=== PATIENT | male | born 1985 | race Caucasian/White ===

== ENCOUNTER 2020-07-22 15:27 | Inpatient (IN) | payer OTHER ==
[~2020-07-22] VITALS: Ht 170.2 cm; Wt 64.6 kg
[2020-07-22] MEDS ORDERED: LIAL1.2T PO ×2 (15:45→21:21)
[2020-07-22] MEDS ORDERED: NS 1,000 ML IV SCH (16:17)
[2020-07-22 17:23] LABS: BASO # 0.1 10^3/uL (0.0-0.2); BASO % 0.3 % (0.0-1.0); EOS # 0.4 10^3/uL (0.0-0.5); EOS % 2.5 % (0.0-3.0); HEMATOCRIT 33.8 % (42.0-52.0); HEMOGLOBIN 10.7 g/dl (13.5-17.5); LYMPH # 1.6 10^3/uL (1.5-5.0); LYMPH % 9.6 % (24.0-44.0); MEAN CORPUSCULAR HEMOGLOBIN 26.8 pg (27.0-33.0); MEAN CORPUSCULAR HGB CONC 31.7 g/dl (32.0-36.5); MEAN CORPUSCULAR VOLUME 84.5 fl (80.0-96.0); MONO # 1.1 10^3/uL (0.0-0.8); MONO % 6.5 % (0.0-5.0); NEUTROPHILS # 13.7 10^3/uL (1.5-8.5); NEUTROPHILS % 80.5 % (36.0-66.0); PLATELET COUNT, AUTOMATED 501 10^3/uL (150-450)
[2020-07-22 17:31] LABS: INR 1.11; PROTHROMBIN TIME 14.5 SECONDS (12.5-14.3)
[2020-07-22 17:40] LABS: ALBUMIN 2.3 GM/DL (3.2-5.2); BILIRUBIN,DIRECT 0.1 MG/DL (0.0-0.2); BILIRUBIN,TOTAL 0.2 MG/DL (0.2-1.0); TOTAL PROTEIN 7.3 GM/DL (6.4-8.2)
[2020-07-22] MEDS: GASTROGRAFIN SOLUTION 30ML PO SCH ×2 (17:51→18:41)
[2020-07-22] MEDS ORDERED: ISOVUE-370 76% 100ML VIAL As Ordered ONE (19:00)
--- NOTE | 2020-07-22 19:58 | REPVR ---
PROCEDURE INFORMATION: Exam: CT Abdomen And Pelvis With Contrast Exam date and time: 07/22/2020 7:18 PM Age: 35 years old Clinical indication: Abdominal pain; Generalized; Additional info: Ulcerative colitis TECHNIQUE: Imaging protocol: Computed tomography of the abdomen and pelvis with intravenous contrast. Radiation optimization: All CT scans at this facility use at least one of these dose optimization techniques: automated exposure control; mA and/or kV adjustment per patient size (includes targeted exams where dose is matched to clinical indication); or iterative reconstruction. Contrast material: ISOVUE 370; Contrast volume: 100 ml; Contrast route: INTRAVENOUS (IV); COMPARISON: No relevant prior studies available. FINDINGS: Liver: Too small to accurately characterize low-density lesion within the posterior segment of the right hepatic lobe (image 33 of series 201), likely cyst. The liver is otherwise unremarkable. Gallbladder and bile ducts: Unremarkable. No calcified stones. No ductal dilation. Pancreas: Unremarkable. No ductal dilation. Spleen: Unremarkable. No splenomegaly. Adrenal glands: Normal. No mass. Kidneys and ureters: Too small to accurately characterize low-density lesion within the right kidney upper pole (axial image numeral 39 of series 201) likely cyst. Normal left kidney. No renal stone or hydronephrosis. Stomach and bowel: Mild circumferential wall thickening throughout the distal transverse colon, splenic flexure, descending colon and sigmoid colon with mild increased density in the pericolonic fat consistent with colitis. The ascending and proximal portion of the transverse colon are unremarkable. The stomach and small bowel are unremarkable. Appendix: No evidence of appendicitis. Intraperitoneal space: Unremarkable. No free air. No significant fluid collection. Vasculature: The main portal vein is dilated measuring up to 18 mm in diameter and the splenic vein is borderline dilated at 11 mm which may be seen with portal venous hypertension. Lymph nodes: Unremarkable. No enlarged lymph nodes. Urinary bladder: Unremarkable as visualized. Reproductive: Unremarkable as visualized. Bones/joints: No acute fracture. Soft tissues: Unremarkable. IMPRESSION: 1. Mild colitis involving the left colon. 2. Possible portal venous hypertension. Electronically signed by: Nader Jordan On 07/22/2020 19:58:24 PM
[2020-07-22] MEDS ORDERED: MAALOX 30 ML SUSP *UDC PO PRN (22:15)
[2020-07-22] MEDS ORDERED: MOM 30ML SUSPENSION UDC PO PRN (22:15)
--- NOTE | 2020-07-22 22:17 | IPNPDOC ---
Text Note Date of Service The patient was seen on 07/22/20. NOTE TIME OF SERVICE 955PM is a 35 yr old w a hx of UC who presented w c/o bloody diarrhea & mid lower abdominal pain and 17 lbs weight loss; he is no longer vomiting. His physical exam is remarkable for generalized palor and occasional grimacing. 1.Diarrhea possibly due to acute UC but need to r/o infection Plan: admit to PCU / IVF / metronidazole / pending GI panel and C.diff will start steroids /no GI auto inspection specialist tonight, will ask the day time team to call GI to discuss switching from Mesalamine to newer Immunologic 2. Abdominal pain Likley 2/2 UC / can't r/o co-existing pancreatitis (Mesalamine like other ASA products can cause pancreatitis) Plan: NPO/ IVF / morphine for pain 3. SIRS reactive vs 2/2 infection Plan: f/u blood cx and GI panel 4. Microcytic anemia w reactive thrombocytosis Likely 2/2 OZ Plan: f/u Iron panel rest per 's H&P VS,Desmondbone, I+O VS, Desmondbone, I+O Laboratory Tests 07/22/20 16:32 Vital Signs Date Time Temp Pulse Resp B/P (MAP) Pulse Ox O2 Delivery O2 Flow Rate FiO2 07/22/20 22:00 107 14 176/90 (118) 100 Room Air 07/22/20 15:28 100.3 EN WILSON MD Jul 22, 2020 22:17
[2020-07-22] MEDS: NS 1,000 ML IV SCH (22:33)
[2020-07-22] MEDS: ACETAMINOPHEN TAB 650MG DOSE (2X325MG) PO PRN (22:49)
[2020-07-22] MEDS: MORPHINE 2 MG/ML 1ML VIAL (J2270) IV PRN (22:49)
--- NOTE | 2020-07-22 23:03 | HPEPDOC ---
[facility] Medical History & Physical Date of Admission Jul 22, 2020 Date of Service: Jul 22, 2020 Attending Physician: EN WILSON MD History and Physical CHIEF COMPLAINT: Abdominal pain, bloody diarrhea HISTORY OF PRESENT ILLNESS: Patient is a 35 year old male who presented to the [facility] ER with complaint of worsening abdominal pain and bloody diarrhea for the past three weeks. Patient states that in January/February of last year he was diagnosed with Ulcerative Colitis. He had been treated with mesalamine and steriod at the time and was continued on Mesalamine for maintenance. He states that three weeks ago he had noticed some increasing abdominal pain and bloody diarrhea. He had steroid left over that his GI doctor in [place] had instructed him to take if he developed a flare. The patient stated that the pain got a little better. He then presented to [facility] where he was told to stop taking the steroid. He was referred to GI with an appointment on August 02. His pain continued to persist and worsened. He stated that he did get a fever and continued to have diarrhea. He noted a 17 pound weight loss over the past week or two. When he returned to his PCP, he was instructed to go to the ER In the ER the patient was vitally stable. He was febrile on presentation, with a leukocytosis and tachycardia. Serum chemistries demonstrated a mild elevation in transaminases and an elevation in serum lipase. CT imaging obtained demonstrated a mild colitis involving the left colon and possible portal venous hypertension. The patient continued to have persistent abdominal pain. Hospitalist service was consulted and the patient was admitted for further evaluation and management PAST MEDICAL HISTORY: 1. Ulcerative Colitis PAST SURGICAL HISTORY: 1. Lasik eye surgery SOCIAL HISTORY: Patient is active . He is a nonsmoker. Denies any IV or illicit drug use. He drinks alcohol on occasion. Maybe 2 glasses of wine per week. FAMILY HISTORY: Patients brother has Ulcerative Colitis. He denies any other family history of autoimmune disorders ALLERGIES: Please see below. REVIEW OF SYSTEMS: CONSTITUTIONAL: Admits to fevers and chills. Denies nightsweats. Admits to weightloss HEENT: Denies difficulty swallowing or pain on swallowing CARDIOVASCULAR: Denies chest pain, palpitations or feelings of the heart racing RESPIRATORY: Denies shortness of breath. Denies cough. Denies wheezing GASTROINTESTINAL: Admits to abdominal pain. Admits to diarrhea. Admits to bloody stool. Admits to nausea. Denies vomiting GENITOURINARY: Denies dysuria. Denies increased frequency or urgency SKIN: Denies rashes or lesions MUSCULOSKELETAL: Denies muscle weakness. Admits to right knee pain that started the other day NEUROLOGICAL: Denies changes in speech. Denies changes in gait PSYCHIATRIC: Denies depression or anxiety ENDOCRINE: Denies heat intolerance or cold intolerance HEMATOLOGIC/LYMPHATIC: Denies easy bruising or bleeding. Denies history of DVT or PE HOME MEDICATIONS: Please see below. PHYSICAL EXAMINATION: VITAL SIGNS: Temperature 100.3, pulse 97, respiratory rate 18, blood pressure 129/76, pulse oximetry 100% on room air. GENERAL APPEARANCE: Patient is awake, alert, and oriented. He does not appear in acute distress. He appears uncomfortable and in pain HEENT: Atraumatic, normocephalic. Eyes are nonicteric. Trachea is midline. Mucous membranes are pink and moist CARDIOVASCULAR: Normal S1, S2. Regular rate and rhythm. No clicks rubs or murmurs LUNGS: Clear vesicular breath sounds bilaterally. No wheezes, rhonchi or rales ABDOMEN: Soft, nondistended. Hyperactive bowel sounds. Nontender. No rebound tenderness or guarding EXTREMITIES: No edema. Full and equal pulses bilaterally. Point tenderness at the lateral knee. NEUROLOGICAL: No focal neurological deficits PSYCHIATRIC: Mood and affect appear appropriate LABORATORY DATA: See below. IMAGING: PROCEDURE INFORMATION: Exam: CT Abdomen And Pelvis With Contrast Exam date and time: 07/22/2020 7:18 PM Age: 35 years old Clinical indication: Abdominal pain; Generalized; Additional info: Ulcerative colitis TECHNIQUE: Imaging protocol: Computed tomography of the abdomen and pelvis with intravenous contrast. Radiation optimization: All CT scans at this facility use at least one of these dose optimization techniques: automated exposure control; mA and/or kV adjustment per patient size (includes targeted exams where dose is matched to clinical indication); or iterative reconstruction. Contrast material: ISOVUE 370; Contrast volume: 100 ml; Contrast route: INTRAVENOUS (IV); COMPARISON: No relevant prior studies available. FINDINGS: Liver: Too small to accurately characterize low-density lesion within the posterior segment of the right hepatic lobe (image 33 of series 201), likely cyst. The liver is otherwise unremarkable. Gallbladder and bile ducts: Unremarkable. No calcified stones. No ductal dilation. Pancreas: Unremarkable. No ductal dilation. Spleen: Unremarkable. No splenomegaly. Adrenal glands: Normal. No mass. Kidneys and ureters: Too small to accurately characterize low-density lesion within the right kidney upper pole (axial image numeral 39 of series 201) likely cyst. Normal left kidney. No renal stone or hydronephrosis. Stomach and bowel: Mild circumferential wall thickening throughout the distal transverse colon, splenic flexure, descending colon and sigmoid colon with mild increased density in the pericolonic fat consistent with colitis. The ascending and proximal portion of the transverse colon are unremarkable. The stomach and small bowel are unremarkable. Appendix: No evidence of appendicitis. Intraperitoneal space: Unremarkable. No free air. No significant fluid collection. Vasculature: The main portal vein is dilated measuring up to 18 mm in diameter and the splenic vein is borderline dilated at 11 mm which may be seen with portal venous hypertension. Lymph nodes: Unremarkable. No enlarged lymph nodes. Urinary bladder: Unremarkable as visualized. Reproductive: Unremarkable as visualized. Bones/joints: No acute fracture. Soft tissues: Unremarkable. IMPRESSION: 1. Mild colitis involving the left colon. 2. Possible portal venous hypertension. Electronically signed by: Nader Jordan On 07/22/2020 19:58:24 PM MICROBIOLOGY: Please see below. ASSESSMENT: Patient is a 35 year old male with as past medical history significant for ulcerative colitis who presented to the [facility] ER with complaint of worsening abdominal pain and bloody diarrhea for the past three weeks . PLAN: 1. SIRS/Sepsis -Patient presenting with fever, tachycardia, and elevated WBC. Imaging demonstrating colitis. His colitis is likely 2/2 ulcerative colitis flare. Will obtain GI panel to rule out infectious etiology -Blood cultures pending 2. Abdominal pain w/ bloody diarrhea likely 2/2 UC -Patient presenting with persistent abdominal pain, bloody diarrhea, and weight loss over the past three weeks. Likely 2/2 ulcerative colitis flare. He has been taking mesalamine outpatient. He has elevation in lipase although his symptomatology and imaging do not suggest pancreatitis. Imaging demonstrating a left sided colitis -Hold -Start Budesonide 9mg daily once GI panel negative -NPO except meds -Continue IVF -Morphine IV for pain relief -Will obtain GI panel to r/o infectious etiology -Flagyl empiric -ESR pending 3. Transaminitis -Patient presenting with transaminitis. Likely secondary to history of UC. Alk phosphatase and bilirubin are not elevated making primary biliary cirrhosis unlikely -Possibly secondary to fatty liver disease -Will trend transaminases 4. Elevated Lipase -As stated previously. Lipase elevated greater then 3x the upper limits. However the patients pain is not consistent with pancreatitis. Imaging does not suggest pancreatitis. -Will continue to monitor -Patient currently NPO, IVF and Morphine for pain 5. Anemia and thrombocytosis -Patient likely has anemia of chronic disease. Thrombocytosis is likely inflammatory -Will obtain iron studies. Currently hgb is stable. Will continue to trend 6. DVT Prophylaxis -Lovenox SQ Vital Signs Vital Signs Date Time Temp Pulse Resp B/P (MAP) Pulse Ox O2 Delivery O2 Flow Rate FiO2 07/22/20 22:00 107 14 176/90 (118) 100 Room Air 07/22/20 15:28 100.3 Laboratory Data Labs 24H Laboratory Tests 2 07/22/20 16:32: Immature Granulocyte % (Auto) 0.6, Neutrophils (%) (Auto) 80.5H, Lymphocytes (%) (Auto) 9.6L, Monocytes (%) (Auto) 6.5H, Eosinophils (%) (Auto) 2.5, Basophils (%) (Auto) 0.3, Neutrophils # (Auto) 13.7H, Lymphocytes # (Auto) 1.6, Monocytes # (Auto) 1.1H, Eosinophils # (Auto) 0.4, Basophils # (Auto) 0.1, Nucleated Red Blood Cells % (auto) 0.0, Prothrombin Time 14.5H, Prothromb Time International Ratio 1.11, Lactic Acid Level 0.9, Total Bilirubin 0.2, Direct Bilirubin 0.1, Aspartate Amino Transf (AST/SGOT) 54H, Alanine Aminotransferase (ALT/SGPT) 99H, Alkaline Phosphatase 87, Total Protein 7.3, Albumin 2.3L, Albumin/Globulin Ratio 0.5, Lipase 2493H 07/22/20 16:55: POC Glucose (Misc Panel) 96, POC Sodium (Misc Panel) 135L, POC Potassium (Misc Panel) 3.7, POC Chloride (Misc Panel) 94L, POC Total CO2 (Misc Panel) 26.0, POC Blood Urea Nitrogen (Misc Panel 7L, POC Ionized Calcium (Misc Panel) 4.6, POC Creatinine (Misc Panel) 1.0, POC Hematocrit (Misc Panel) 33.0L CBC/BMP Laboratory Tests 07/22/20 16:32 Microbiology Microbiology 07/22/20 Blood Culture, Received Pending 07/22/20 Blood Culture, Received Pending Home Medications Scheduled Mesalamine (Lialda) 1.2 Gm Tablet., 3.6 GM PO DAILY Allergies Coded Allergies: No Known Allergies (Unverified , 07/22/20) A-FIB/CHADSVASC A-FIB History Current/History of A-Fib/PAF?: No GME ATTESTATION GME ATTESTATION My faculty preceptor for this patient encounter was physically present during the encounter and was fully available. All aspects of the patient interview, examination, medical decision making process, and medical care plan development were reviewed and approved by the faculty preceptor. The faculty preceptor is aware and concurs with the plan as stated in the body of this note and will attest to such by his/her cosignature. ATTENDING NOTE Pls see my addendum from 07/22/20 reviewed the H&P and agree with the findings as documented except 1.Diarrhea possibly due to acute UC but need to r/o infection will not start steroids until GI panel is back bc if the patient has an infection/sepsis they will further suppress his immune system 2. Abdominal pain Likely 2/2 UC / can't r/o co-existing pancreatitis (Mesalamine like other ASA products can cause pancreatitis and he has 2/3 criteria which is adequate to confirm a diagnosis of pancreatitis) Plan: NPO/ IVF / morphine for pain 3. Reactive SIRS vs Sepsis 2/2 GI infection Plan: f/u blood cx and GI panel / metronidazole RAH MONSON DO Jul 22, 2020 23:03 EN WILSON MD Jul 23, 2020 01:47
[2020-07-22 23:05] LABS: ERYTHROCYTE SEDIMENTATION RATE 116 mm/hr (0-15)
[2020-07-22 23:24] LABS: CHOLESTEROL RISK RATIO 3.333 (<5); PERCENT SATURATION 4.7 % (19.7-50.0)
[2020-07-22 23:33] LABS: FOLATE 7.9 NG/ML
[2020-07-22 23:54] VITALS: BP 117/74
[2020-07-23] MEDS ORDERED: metroNIDAZOLE 500 MG in IV 1 EA IV SCH ×2
[2020-07-23] MEDS: NS 1,000 ML IV SCH ×5 (02:49→18:23)
[2020-07-23] MEDS: MORPHINE 2 MG/ML 1ML VIAL (J2270) IV PRN ×6 (03:53→22:31)
[2020-07-23 05:43] LABS: BASO % 0.2 % (0.0-1.0); EOS # 0.6 10^3/uL (0.0-0.5); EOS % 3.7 % (0.0-3.0); HEMATOCRIT 28.1 % (42.0-52.0); HEMOGLOBIN 8.8 g/dl (13.5-17.5); LYMPH # 1.7 10^3/uL (1.5-5.0); LYMPH % 10.6 % (24.0-44.0); MEAN CORPUSCULAR HEMOGLOBIN 26.6 pg (27.0-33.0); MEAN CORPUSCULAR HGB CONC 31.3 g/dl (32.0-36.5); MEAN CORPUSCULAR VOLUME 84.9 fl (80.0-96.0); MONO # 1.2 10^3/uL (0.0-0.8); MONO % 7.3 % (0.0-5.0); NEUTROPHILS # 12.7 10^3/uL (1.5-8.5); NEUTROPHILS % 77.7 % (36.0-66.0); PLATELET COUNT, AUTOMATED 408 10^3/uL (150-450); RED BLOOD COUNT 3.31 10^6/uL (4.30-6.10); WHITE BLOOD COUNT 16.4 10^3/uL (4.0-10.0)
[2020-07-23 06:00] VITALS: BP 126/70
[2020-07-23 06:03] LABS: ALBUMIN 1.7 GM/DL (3.2-5.2); ALT/SGPT 67 U/L (12-78); BILIRUBIN,TOTAL 0.4 MG/DL (0.2-1.0); BLOOD UREA NITROGEN 6 MG/DL (7-18); CALCIUM LEVEL 7.9 MG/DL (8.5-10.1); CARBON DIOXIDE LEVEL 27 MEQ/L (21-32); CHLORIDE LEVEL 107 MEQ/L (98-107); CREATININE FOR GFR 0.96 MG/DL (0.70-1.30); GLOMERULAR FILTRATION RATE > 60.0 (>60); GLUCOSE, FASTING 93 MG/DL (70-100); POTASSIUM SERUM 3.9 MEQ/L (3.5-5.1); SODIUM LEVEL 140 MEQ/L (136-145)
[2020-07-23] MEDS ORDERED: BUDESONIDE EC 3 MG CAP (ENTOCORT EC) PO SCH (09:00)
[2020-07-23] MEDS: ENOXAPARIN 40MG/0.4ML SYRINGE (J1650 PER 10MG) SC SCH (09:00)
[2020-07-23] MEDS ORDERED: MESALAMINE 250 MG CR CAP PO SCH (09:00)
[2020-07-23] MEDS: methylPREDNISolone 125MG 2ML VIAL IV SCH (09:01)
--- NOTE | 2020-07-23 09:22 | IPNPDOC ---
Text Note Date of Service The patient was seen on 07/23/20. NOTE Subjective: Patient continues to have diffuse abdominal pain 5 out of 10, ov ernight he had 4 bowel movements, stool covered with blood Objective: GENERAL APPEARANCE: NAD HEENT: no scleral icterus, no JVD, EOMI CARDIOVASCULAR: S1S2 LUNGS: CTA ABDOMEN: Moderate tenderness over left lower quadrant, no rebound, bowel sounds present MUSCULOSKELETAL: no cyanosis, no swelling INTEGUMENT: no generalized palor NEUROLOGICAL: cranial nerve function from 2-12 intact intact, follows commands, speech not dysarthric Assessment and plan Patient is a 35 year old male with as past medical history significant for ulcerative colitis who presented to the [facility] ER with ulcerative colitis flare SIRS Most likely secondary to ulcerative colitis exacerbation Patient continues to have tachycardia and leukocytosis. Afebrile in the morning Abdominal pain with bloody diarrhea Most likely secondary to ulcerative colitis exacerbation Solu-Medrol 60 mg IV daily Clear liquid diet for now Pain management Transaminitis Resolved Ulcerative colitis Patient received by mouth prednisone, however prednisone was recently stopped by PCP Patient will have appointment with GI team on August 02 No GI coverage this week Solu-Medrol IV Elevated lipase Most likely secondary to mesalamine therapy Patient denied any epigastric pain or left upper quadrant pain CT scan did not show pancreatic inflammation Continue IV fluid, continue to monitor Anemia Most likely combined anemia of chronic inflammation and iron deficient anemia secondary to blood loss Iron supplementation H&H every 6 hours VS,Fishbone, I+O VS, Fishbone, I+O Laboratory Tests 07/22/20 16:32 07/23/20 05:20 Vital Signs Date Time Temp Pulse Resp B/P (MAP) Pulse Ox O2 Delivery O2 Flow Rate FiO2 07/23/20 06:00 99.6 88 18 126/70 (88) 96 Room Air I&O- Last 24 Hours up to 6 AM 07/23/20 06:00 Intake Total 2925 ml Output Total 0 ml Balance 2925 ml RONALDO SOARES DO Jul 23, 2020 09:22
[2020-07-23 09:55] VITALS: BP 142/73
[2020-07-23] MEDS: IRON POLYSAC (NIFEREX) 150 MG CAP PO SCH ×2 (10:42→20:18)
[2020-07-23 13:33] VITALS: BP 140/79
[2020-07-23 14:15] LABS: HEMATOCRIT 28.3 % (42.0-52.0); HEMOGLOBIN 8.8 g/dl (13.5-17.5)
[2020-07-23 14:38] LABS: ALBUMIN 1.9 GM/DL (3.2-5.2); ALT/SGPT 65 U/L (12-78); BILIRUBIN,TOTAL 0.2 MG/DL (0.2-1.0); BLOOD UREA NITROGEN 6 MG/DL (7-18); CALCIUM LEVEL 7.7 MG/DL (8.5-10.1); CARBON DIOXIDE LEVEL 26 MEQ/L (21-32); CHLORIDE LEVEL 106 MEQ/L (98-107); GLOMERULAR FILTRATION RATE > 60.0 (>60); GLUCOSE, FASTING 121 MG/DL (70-100); POTASSIUM SERUM 4.2 MEQ/L (3.5-5.1); SODIUM LEVEL 138 MEQ/L (136-145); TOTAL PROTEIN 5.8 GM/DL (6.4-8.2)
[2020-07-23 17:47] VITALS: BP 135/75
[2020-07-23 20:00] VITALS: BP 115/63
[2020-07-23 20:20] LABS: HEMATOCRIT 26.8 % (42.0-52.0); HEMOGLOBIN 8.3 g/dl (13.5-17.5)
[2020-07-23] MEDS: ACETAMINOPHEN TAB 650MG DOSE (2X325MG) PO PRN (21:43)
[2020-07-24 02:00] VITALS: BP 105/72
[2020-07-24 02:05] LABS: HEMATOCRIT 25.4 % (42.0-52.0)
[2020-07-24 02:19] LABS: BASO % 0.2 % (0.0-1.0); EOS % 0.1 % (0.0-3.0); HEMATOCRIT 25.3 % (42.0-52.0); LYMPH # 1.2 10^3/uL (1.5-5.0); LYMPH % 6.7 % (24.0-44.0); MEAN CORPUSCULAR HEMOGLOBIN 26.4 pg (27.0-33.0); MEAN CORPUSCULAR HGB CONC 31.6 g/dl (32.0-36.5); MEAN CORPUSCULAR VOLUME 83.5 fl (80.0-96.0); MONO # 1.2 10^3/uL (0.0-0.8); MONO % 6.4 % (0.0-5.0); NEUTROPHILS # 15.7 10^3/uL (1.5-8.5); PLATELET COUNT, AUTOMATED 396 10^3/uL (150-450); RED BLOOD COUNT 3.03 10^6/uL (4.30-6.10); WHITE BLOOD COUNT 18.2 10^3/uL (4.0-10.0)
[2020-07-24 02:39] LABS: ALBUMIN 1.8 GM/DL (3.2-5.2); ALT/SGPT 55 U/L (12-78); BILIRUBIN,TOTAL 0.2 MG/DL (0.2-1.0); BLOOD UREA NITROGEN 6 MG/DL (7-18); CARBON DIOXIDE LEVEL 26 MEQ/L (21-32); CHLORIDE LEVEL 108 MEQ/L (98-107); CREATININE FOR GFR 0.81 MG/DL (0.70-1.30); GLOMERULAR FILTRATION RATE > 60.0 (>60); GLUCOSE, FASTING 102 MG/DL (70-100); MAGNESIUM LEVEL 1.9 MG/DL (1.8-2.4); POTASSIUM SERUM 4.2 MEQ/L (3.5-5.1); SODIUM LEVEL 140 MEQ/L (136-145); TOTAL PROTEIN 5.5 GM/DL (6.4-8.2)
[2020-07-24] MEDS: ACETAMINOPHEN TAB 650MG DOSE (2X325MG) PO PRN ×3 (04:27→18:51)
[2020-07-24] MEDS: NS 1,000 ML IV SCH ×3 (04:28→20:46)
[2020-07-24] MEDS: MORPHINE 2 MG/ML 1ML VIAL (J2270) IV PRN ×4 (04:28→18:52)
[2020-07-24 06:00] VITALS: BP 117/69
[2020-07-24] MEDS: IRON POLYSAC (NIFEREX) 150 MG CAP PO SCH ×2 (08:12→20:45)
[2020-07-24] MEDS: ENOXAPARIN 40MG/0.4ML SYRINGE (J1650 PER 10MG) SC SCH ×2 (08:12→08:14)
[2020-07-24] MEDS: methylPREDNISolone 125MG 2ML VIAL IV SCH (08:13)
[2020-07-24 08:37] LABS: HEMATOCRIT 26.3 % (42.0-52.0)
[2020-07-24 10:00] VITALS: BP 129/78
--- NOTE | 2020-07-24 10:58 | IPNPDOC ---
Text Note Date of Service The patient was seen on 07/24/20. NOTE Subjective: Patient stated that he feels better, he had 2 bowel movements ov ernight without blood Objective: GENERAL APPEARANCE: NAD HEENT: no scleral icterus, no JVD, EOMI CARDIOVASCULAR: S1S2 LUNGS: CTA ABDOMEN: Mild tenderness over left lower quadrant, no rebound, bowel sounds present MUSCULOSKELETAL: no cyanosis, no swelling INTEGUMENT: no generalized palor NEUROLOGICAL: cranial nerve function from 2-12 intact intact, follows commands, speech not dysarthric Assessment and plan Patient is a 35 year old male with as past medical history significant for ul cerative colitis who presented to the [facility] ER with ulcerative colitis flare SIRS Most likely secondary to ulcerative colitis exacerbation Patient continues to have tachycardia and leukocytosis. Afebrile in the morning Abdominal pain with bloody diarrhea Most likely secondary to ulcerative colitis exacerbation Solu-Medrol 60 mg IV daily Full liquid diet Pain management Transaminitis Resolved Ulcerative colitis Patient received by mouth prednisone, however prednisone was recently stopped by PCP Patient will have appointment with GI team on August 02 No GI coverage this week Solu-Medrol IV Elevated lipase Most likely secondary to mesalamine therapy Patient denied any epigastric pain or left upper quadrant pain CT scan did not show pancreatic inflammation Continue IV fluid, continue to monitor Anemia Most likely combined anemia of chronic inflammation and iron deficient anemia secondary to blood loss Iron supplementation H&H every 6 hours VS,Fishbone, I+O VS, Fishbone, I+O Laboratory Tests 07/23/20 13:56 07/23/20 20:10 07/24/20 01:59 07/24/20 08:25 Vital Signs Date Time Temp Pulse Resp B/P (MAP) Pulse Ox O2 Delivery O2 Flow Rate FiO2 07/24/20 08:00 16 07/24/20 06:00 98.8 66 117/69 (85) 96 Room Air I&O- Last 24 Hours up to 6 AM 07/24/20 06:00 Intake Total 5240 ml Output Total 0 ml Balance 5240 ml RONALDO SOARES DO Jul 24, 2020 10:58
[2020-07-24 14:00] VITALS: BP 121/70
[2020-07-24 14:05] LABS: HEMATOCRIT 28.3 % (42.0-52.0); HEMOGLOBIN 8.6 g/dl (13.5-17.5)
[2020-07-24 20:00] VITALS: BP 108/63
[2020-07-24 20:18] LABS: HEMATOCRIT 27.4 % (42.0-52.0); HEMOGLOBIN 8.4 g/dl (13.5-17.5)
[2020-07-25] MEDS: ACETAMINOPHEN TAB 650MG DOSE (2X325MG) PO PRN ×3 (00:41→20:01)
[2020-07-25] MEDS: MORPHINE 2 MG/ML 1ML VIAL (J2270) IV PRN ×5 (00:41→23:53)
[2020-07-25 01:01] LABS: BASO % 0.1 % (0.0-1.0); EOS % 0.2 % (0.0-3.0); HEMOGLOBIN 7.4 g/dl (13.5-17.5); LYMPH # 1.8 10^3/uL (1.5-5.0); LYMPH % 14.4 % (24.0-44.0); MEAN CORPUSCULAR HGB CONC 30.8 g/dl (32.0-36.5); MEAN CORPUSCULAR VOLUME 84.2 fl (80.0-96.0); MONO % 7.7 % (0.0-5.0); NEUTROPHILS # 9.7 10^3/uL (1.5-8.5); NEUTROPHILS % 77.2 % (36.0-66.0); PLATELET COUNT, AUTOMATED 396 10^3/uL (150-450); RED BLOOD COUNT 2.85 10^6/uL (4.30-6.10); WHITE BLOOD COUNT 12.6 10^3/uL (4.0-10.0)
[2020-07-25 01:30] LABS: ALBUMIN 1.6 GM/DL (3.2-5.2); ALT/SGPT 44 U/L (12-78); BILIRUBIN,TOTAL 0.1 MG/DL (0.2-1.0); BLOOD UREA NITROGEN 7 MG/DL (7-18); CALCIUM LEVEL 7.9 MG/DL (8.5-10.1); CARBON DIOXIDE LEVEL 28 MEQ/L (21-32); CHLORIDE LEVEL 108 MEQ/L (98-107); CREATININE FOR GFR 0.73 MG/DL (0.70-1.30); GLOMERULAR FILTRATION RATE > 60.0 (>60); GLUCOSE, FASTING 99 MG/DL (70-100); MAGNESIUM LEVEL 1.9 MG/DL (1.8-2.4); POTASSIUM SERUM 4.1 MEQ/L (3.5-5.1); SODIUM LEVEL 141 MEQ/L (136-145); TOTAL PROTEIN 5.1 GM/DL (6.4-8.2)
[2020-07-25 02:00] VITALS: BP 114/54
[2020-07-25] MEDS: NS 1,000 ML IV SCH ×3 (04:29→20:58)
[2020-07-25 06:00] VITALS: BP 111/66
[2020-07-25 08:13] LABS: HEMATOCRIT 27.1 % (42.0-52.0); HEMOGLOBIN 8.2 g/dl (13.5-17.5)
[2020-07-25] MEDS: methylPREDNISolone 125MG 2ML VIAL IV SCH (08:33)
[2020-07-25] MEDS: IRON POLYSAC (NIFEREX) 150 MG CAP PO SCH ×2 (08:33→20:00)
[2020-07-25] MEDS: ENOXAPARIN 40MG/0.4ML SYRINGE (J1650 PER 10MG) SC SCH (08:34)
[2020-07-25 10:00] VITALS: BP 135/71
--- NOTE | 2020-07-25 10:29 | IPNPDOC ---
Text Note Date of Service The patient was seen on 07/25/20. NOTE Subjective: Patient had 2 bowel movements overnight with stool with blood str eaks Objective: GENERAL APPEARANCE: NAD HEENT: no scleral icterus, no JVD, EOMI CARDIOVASCULAR: S1S2 LUNGS: CTA ABDOMEN: Mild tenderness over left lower quadrant, no rebound, bowel sounds present MUSCULOSKELETAL: no cyanosis, no swelling INTEGUMENT: no generalized palor NEUROLOGICAL: cranial nerve function from 2-12 intact intact, follows commands, speech not dysarthric Assessment and plan Patient is a 35 year old male with as past medical history significant for ulcerative colitis who presented to the [facility] ER with ulcerative colitis flare SIRS Most likely secondary to ulcerative colitis exacerbation Patient continues to have tachycardia and leukocytosis. Afebrile in the morning Abdominal pain with bloody diarrhea Most likely secondary to ulcerative colitis exacerbation Solu-Medrol 60 mg IV daily Regular diet Pain management Transaminitis Resolved Ulcerative colitis Patient received by mouth prednisone, however prednisone was recently stopped by PCP Patient will have appointment with GI team on August 02 No GI coverage this week Solu-Medrol IV Elevated lipase Most likely secondary to mesalamine therapy Patient denied any epigastric pain or left upper quadrant pain CT scan did not show pancreatic inflammation Continue IV fluid, continue to monitor Anemia Most likely combined anemia of chronic inflammation and iron deficient anemia secondary to blood loss Iron supplementation H&H every 6 hours VS,Ava, I+O VS, Ava, I+O Laboratory Tests 07/24/20 13:49 07/24/20 20:06 07/25/20 07:55 Vital Signs Date Time Temp Pulse Resp B/P (MAP) Pulse Ox O2 Delivery O2 Flow Rate FiO2 07/25/20 08:44 16 07/25/20 06:00 98.6 73 111/66 (81) 96 Room Air I&O- Last 24 Hours up to 6 AM0 07/25/20 06:00 Intake Total 3820 ml Output Total 0 ml Balance 3820 ml RONALDO SOARES DO Jul 25, 2020 10:29
[2020-07-25 14:00] VITALS: BP 112/62
[2020-07-25 18:00] VITALS: BP 122/67
[2020-07-25 22:00] VITALS: BP 118/65
[2020-07-26] MEDS: PERCOCET 5MG/325MG TAB PO PRN ×4 (00:44→20:17)
[2020-07-26] MEDS: methylPREDNISolone 125MG 2ML VIAL IV SCH ×3 (00:45→20:18)
[2020-07-26 01:17] LABS: BASO % 0.2 % (0.0-1.0); EOS # 0.1 10^3/uL (0.0-0.5); EOS % 0.4 % (0.0-3.0); HEMATOCRIT 28.5 % (42.0-52.0); HEMOGLOBIN 8.6 g/dl (13.5-17.5); LYMPH # 2.2 10^3/uL (1.5-5.0); LYMPH % 18.4 % (24.0-44.0); MEAN CORPUSCULAR HEMOGLOBIN 25.9 pg (27.0-33.0); MEAN CORPUSCULAR HGB CONC 30.2 g/dl (32.0-36.5); MEAN CORPUSCULAR VOLUME 85.8 fl (80.0-96.0); MONO # 1.1 10^3/uL (0.0-0.8); NEUTROPHILS # 8.4 10^3/uL (1.5-8.5); NEUTROPHILS % 70.8 % (36.0-66.0); PLATELET COUNT, AUTOMATED 507 10^3/uL (150-450); RED BLOOD COUNT 3.32 10^6/uL (4.30-6.10); WHITE BLOOD COUNT 11.9 10^3/uL (4.0-10.0)
[2020-07-26 01:59] LABS: BLOOD UREA NITROGEN 11 MG/DL (7-18); CALCIUM LEVEL 8.3 MG/DL (8.5-10.1); CARBON DIOXIDE LEVEL 29 MEQ/L (21-32); CHLORIDE LEVEL 108 MEQ/L (98-107); CREATININE FOR GFR 0.79 MG/DL (0.70-1.30); GLOMERULAR FILTRATION RATE > 60.0 (>60); GLUCOSE, FASTING 96 MG/DL (70-100); POTASSIUM SERUM 4.1 MEQ/L (3.5-5.1); SODIUM LEVEL 142 MEQ/L (136-145)
[2020-07-26] MEDS: NS 1,000 ML IV SCH (05:23)
[2020-07-26 05:37] LABS: HEMATOCRIT 26.5 % (42.0-52.0); MEAN CORPUSCULAR HEMOGLOBIN 26.1 pg (27.0-33.0); MEAN CORPUSCULAR HGB CONC 30.2 g/dl (32.0-36.5); MEAN CORPUSCULAR VOLUME 86.3 fl (80.0-96.0); PLATELET COUNT, AUTOMATED 453 10^3/uL (150-450); RED BLOOD COUNT 3.07 10^6/uL (4.30-6.10); WHITE BLOOD COUNT 13.1 10^3/uL (4.0-10.0)
[2020-07-26 05:59] LABS: ALBUMIN 1.8 GM/DL (3.2-5.2); ALT/SGPT 60 U/L (12-78); BILIRUBIN,TOTAL 0.1 MG/DL (0.2-1.0); BLOOD UREA NITROGEN 8 MG/DL (7-18); CALCIUM LEVEL 7.5 MG/DL (8.5-10.1); CARBON DIOXIDE LEVEL 30 MEQ/L (21-32); CHLORIDE LEVEL 109 MEQ/L (98-107); CREATININE FOR GFR 0.75 MG/DL (0.70-1.30); GLOMERULAR FILTRATION RATE > 60.0 (>60); GLUCOSE, FASTING 105 MG/DL (70-100); POTASSIUM SERUM 4.3 MEQ/L (3.5-5.1); SODIUM LEVEL 142 MEQ/L (136-145); TOTAL PROTEIN 5.5 GM/DL (6.4-8.2)
[2020-07-26 06:00] VITALS: BP 123/68
[2020-07-26] MEDS: ENOXAPARIN 40MG/0.4ML SYRINGE (J1650 PER 10MG) SC SCH (08:50)
[2020-07-26] MEDS ORDERED: IRON SUCROSE 100MG 5ML VIAL (J1756 PER 1MG) IV SCH (09:00)
[2020-07-26] MEDS: IRON POLYSAC (NIFEREX) 150 MG CAP PO SCH ×2 (09:15→20:17)
--- NOTE | 2020-07-26 10:34 | IPNPDOC ---
Text Note Date of Service The patient was seen on 07/26/20. NOTE Subjective: Patient stated that abdominal pain improved, he had 2 bowel movem ents overnight with blood streaks Objective: GENERAL APPEARANCE: NAD HEENT: no scleral icterus, no JVD, EOMI CARDIOVASCULAR: S1S2 LUNGS: CTA ABDOMEN: Mild tenderness over left lower quadrant, no rebound, bowel sounds present MUSCULOSKELETAL: no cyanosis, no swelling INTEGUMENT: no generalized palor NEUROLOGICAL: cranial nerve function from 2-12 intact intact, follows commands, speech not dysarthric Assessment and plan Patient is a 35 year old male with as past medical history significant for ulcerative colitis who presented to the [facility] ER with ulcerative colitis flare SIRS Resolved Most likely secondary to ulcerative colitis exacerbation Patient continues to have tachycardia and leukocytosis. Afebrile in the morning Abdominal pain with bloody diarrhea Most likely secondary to ulcerative colitis exacerbation Solu-Medrol 60 mg IV twice a day for now Regular diet Pain management Transaminitis Resolved Ulcerative colitis Patient received by mouth prednisone, however prednisone was recently stopped by PCP Patient will have appointment with GI team on August 02 No GI coverage this week Solu-Medrol IV I talked to Dr Valerio he recommended by mouth prednisone on discharge with tapering and check hepatitis panel and quantiferon test before Humira administration in the outpatient settings. Elevated lipase Most likely secondary to mesalamine therapy Patient denied any epigastric pain or left upper quadrant pain CT scan did not show pancreatic inflammation continue to monitor Anemia Most likely combined anemia of chronic inflammation and iron deficient anemia secondary to blood loss Iron supplementation H&H every 6 hours VS,Fishbone, I+O VS, Fishbone, I+O Laboratory Tests 07/26/20 01:03 07/26/20 05:24 Vital Signs Date Time Temp Pulse Resp B/P (MAP) Pulse Ox O2 Delivery O2 Flow Rate FiO2 07/26/20 06:00 98.6 60 18 123/68 (86) 97 07/25/20 18:00 Room Air I&O- Last 24 Hours up to 6 AM 07/26/20 06:00 Intake Total 4980 ml Output Total 750 ml Balance 4230 ml RONALDO SOARES DO Jul 26, 2020 10:34
[2020-07-26 12:03] VITALS: BP 129/76
[2020-07-26] MEDS: IRON SUCROSE 100 MG in NS 100 ML OVER 1 HR IV SCH (12:05)
[2020-07-26 12:06] LABS: HEPATITIS A ANTIBODY IGM NEGATIVE (NEGATIVE); HEPATITIS B CORE ANTIBODY IGM NEGATIVE (NEGATIVE); HEPATITIS B SURFACE ANTIGEN NEGATIVE (NEGATIVE); HEPATITIS C VIRUS ABY INDEX 0.1 INDEX (<0.8)
[2020-07-26 13:28] VITALS: BP 129/72
[2020-07-26 17:07] LABS: CALPROTECTIN STOOL 909 ug/g (0-120)
[2020-07-26 22:00] VITALS: BP 123/72
[2020-07-27] MEDS: PERCOCET 5MG/325MG TAB PO PRN (04:04)
[2020-07-27 05:53] LABS: HEMATOCRIT 28.1 % (42.0-52.0); HEMOGLOBIN 8.4 g/dl (13.5-17.5); MEAN CORPUSCULAR HEMOGLOBIN 25.7 pg (27.0-33.0); MEAN CORPUSCULAR HGB CONC 29.9 g/dl (32.0-36.5); MEAN CORPUSCULAR VOLUME 85.9 fl (80.0-96.0); PLATELET COUNT, AUTOMATED 514 10^3/uL (150-450); RED BLOOD COUNT 3.27 10^6/uL (4.30-6.10); WHITE BLOOD COUNT 15.6 10^3/uL (4.0-10.0)
[2020-07-27 06:00] VITALS: BP 130/72
[2020-07-27 06:18] LABS: ALBUMIN 1.8 GM/DL (3.2-5.2); ALT/SGPT 88 U/L (12-78); BILIRUBIN,TOTAL 0.1 MG/DL (0.2-1.0); BLOOD UREA NITROGEN 11 MG/DL (7-18); CALCIUM LEVEL 8.3 MG/DL (8.5-10.1); CARBON DIOXIDE LEVEL 30 MEQ/L (21-32); CHLORIDE LEVEL 106 MEQ/L (98-107); CREATININE FOR GFR 0.85 MG/DL (0.70-1.30); GLOMERULAR FILTRATION RATE > 60.0 (>60); GLUCOSE, FASTING 99 MG/DL (70-100); POTASSIUM SERUM 4.7 MEQ/L (3.5-5.1); SODIUM LEVEL 140 MEQ/L (136-145); TOTAL PROTEIN 5.7 GM/DL (6.4-8.2)
[2020-07-27] MEDS: ENOXAPARIN 40MG/0.4ML SYRINGE (J1650 PER 10MG) SC SCH (08:40)
[2020-07-27] MEDS: methylPREDNISolone 125MG 2ML VIAL IV SCH (08:48)
[2020-07-27] MEDS: IRON POLYSAC (NIFEREX) 150 MG CAP PO SCH (08:48)
[2020-07-27] MEDS: IRON SUCROSE 100 MG in NS 100 ML OVER 1 HR IV SCH (11:15)
[2020-07-27] MEDS ORDERED: PRED20TA PO (11:39)
[2020-07-27] MEDS ORDERED: ACET1TAB55 PO (11:39)
[2020-07-27] MEDS ORDERED: PRED10TA2 PO ×3 (11:39)
[2020-07-27] MEDS ORDERED: NIFE15CA PO (11:39)
[2020-07-27] MEDS ORDERED: FERR325T3 PO (12:31)
--- NOTE | 2020-07-27 13:54 | DS.PDOC ---
Discharge Summary General Date of Admission Jul 22, 2020 at 21:22 Date of Discharge 07/27/20 Discharge Summary PROCEDURES PERFORMED DURING STAY: [None]. ADMITTING DIAGNOSES: SIRS Abdominal pain with bloody diarrhea Ulcerative colitis Elevated lipase Anemia DISCHARGE DIAGNOSES: SIRS Abdominal pain with bloody diarrhea Ulcerative colitis Elevated lipase Anemia COMPLICATIONS/CHIEF COMPLAINT: Abdominal Pain. HISTORY OF PRESENT ILLNESS:Patient is a 35 year old male with as past medical history significant for ulcerative colitis who presented to the [facility] ER with ulcerative colitis flare HOSPITAL COURSE: During hospital stay following issue addressed SIRS Resolved Most likely secondary to ulcerative colitis exacerbation Patient continues to have tachycardia and leukocytosis. Afebrile in the morning Abdominal pain with bloody diarrhea Most likely secondary to ulcerative colitis exacerbation Solu-Medrol 60 mg IV twice a day Regular diet Pain management Transaminitis Resolved Ulcerative colitis Patient received by mouth prednisone, however prednisone was recently stopped by PCP Patient will have appointment with GI team on August 02 No GI coverage this week Solu-Medrol IV I talked to Dr Valerio he recommended by mouth prednisone on discharge with tapering and check hepatitis panel and quantiferon test before Humira administration in the outpatient settings. Elevated lipase Most likely secondary to mesalamine therapy Patient denied any epigastric pain or left upper quadrant pain CT scan did not show pancreatic inflammation continue to monitor Anemia Most likely combined anemia of chronic inflammation and iron deficient anemia secondary to blood loss Iron supplementation DISCHARGE MEDICATIONS: Please see below. ALLERGIES: Please see below. PHYSICAL EXAMINATION ON DISCHARGE: VITAL SIGNS: Please see below. GENERAL APPEARANCE: NAD HEENT: no scleral icterus, no JVD, EOMI CARDIOVASCULAR: S1S2 LUNGS: CTA ABDOMEN: Mild tenderness over left lower quadrant, no rebound, bowel sounds present MUSCULOSKELETAL: no cyanosis, no swelling INTEGUMENT: no generalized palor NEUROLOGICAL: cranial nerve function from 2-12 intact intact, follows commands, speech not dysarthric LABORATORY DATA: Please see below. IMAGING: [facility] NAME: SHAY RICHARD DATE OF : 1985 BUSINESS NUMBER: [id number] AGE: 35 SEX: M REPORT #: [id number] ROOM: ED TECHNOLOGIST: RAUL DOCTOR: Lucia Alarcon MD Ordered for Date&Time: 07/22/20 1709 cc: [~ rep ct ivnm] Service Date&Time: 07/22/201917 This report is in Signed status. Interpretation performed by [facility]. Thank you for having your radiology procedures performed at [facility] RADIOLOGY REPORT Date&Time printed: [~ rep prt dt last] [~ rep prt tm last] Page [address] of [address] [address] RADIOLOGY REPORT This report is in Signed status. Interpretation performed by [facility]. Thank you for having your radiology procedures performed at [facility] RADIOLOGY REPORT Date&Time printed: [~ rep prt dt last] [~ rep prt tm last] Page 1 of 1 PROCEDURE INFORMATION: Exam: CT Abdomen And Pelvis With Contrast Exam date and time: 07/22/2020 7:18 PM Age: 35 years old Clinical indication: Abdominal pain; Generalized; Additional info: Ulcerative colitis TECHNIQUE: Imaging protocol: Computed tomography of the abdomen and pelvis with intravenous contrast. Radiation optimization: All CT scans at this facility use at least one of these dose optimization techniques: automated exposure control; mA and/or kV adjustment per patient size (includes targeted exams where dose is matched to clinical indication); or iterative reconstruction. Contrast material: ISOVUE 370; Contrast volume: 100 ml; Contrast route: INTRAVENOUS (IV); COMPARISON: No relevant prior studies available. FINDINGS: Liver: Too small to accurately characterize low-density lesion within the posterior segment of the right hepatic lobe (image 33 of series 201), likely cyst. The liver is otherwise unremarkable. Gallbladder and bile ducts: Unremarkable. No calcified stones. No ductal dilation. Pancreas: Unremarkable. No ductal dilation. Spleen: Unremarkable. No splenomegaly. Adrenal glands: Normal. No mass. Kidneys and ureters: Too small to accurately characterize low-density lesion within the right kidney upper pole (axial image numeral 39 of series 201) likely cyst. Normal left kidney. No renal stone or hydronephrosis. Stomach and bowel: Mild circumferential wall thickening throughout the distal transverse colon, splenic flexure, descending colon and sigmoid colon with mild increased density in the pericolonic fat consistent with colitis. The ascending and proximal portion of the transverse colon are unremarkable. The stomach and small bowel are unremarkable. Appendix: No evidence of appendicitis. Intraperitoneal space: Unremarkable. No free air. No significant fluid collection. Vasculature: The main portal vein is dilated measuring up to 18 mm in diameter and the splenic vein is borderline dilated at 11 mm which may be seen with portal venous hypertension. Lymph nodes: Unremarkable. No enlarged lymph nodes. Urinary bladder: Unremarkable as visualized. Reproductive: Unremarkable as visualized. Bones/joints: No acute fracture. Soft tissues: Unremarkable. IMPRESSION: 1. Mild colitis involving the left colon. 2. Possible portal venous hypertension. Electronically signed by: Micheal Dickinson On 07/22/2020 19:58:24 PM DD: MICHEAL DICKINSON MD 07/22/201917 DT: JOSE ALFREDO 07/22/201957 DS: ISAIAS 07/22/201957 [~ rep ct labl] PROGNOSIS: Fair ACTIVITY: [As tolerated]. DIET: Regular DISPOSITION: 01 Home, Self-Care. DISCHARGE INSTRUCTIONS: Take prednisone taper ITEMS TO FOLLOWUP ON ON OUTPATIENT: Follow-up with care tech on August 02 Follow-up with PCP in one to days DISCHARGE CONDITION: [Stable]. TIME SPENT ON DISCHARGE: Greater than 40 minutes. Vital Signs/I&Os Vital Signs Date Time Temp Pulse Resp B/P (MAP) Pulse Ox O2 Delivery O2 Flow Rate FiO2 07/27/20 06:00 98.7 57 18 130/72 (91) 99 Room Air I&O- Last 24 Hours up to 6 AM 07/27/20 06:00 Intake Total 1800 ml Output Total 0 ml Balance 1800 ml Laboratory Data Labs 24H Laboratory Tests 2 07/27/20 05:28: Nucleated Red Blood Cells % (auto) 0.0, Anion Gap 4L, Glomerular Filtration Rate > 60.0, Calcium Level 8.3L, Magnesium Level 2.0, Total Bilirubin 0.1L, Aspa rtate Amino Transf (AST/SGOT) 46H, Alanine Aminotransferase (ALT/SGPT) 88H, Alkaline Phosphatase 80, Total Protein 5.7L, Albumin 1.8L, Albumin/Globulin Ratio 0.5 CBC/BMP Laboratory Tests 07/27/20 05:28 Microbiology Microbiology 07/23/20 Campylobacter (PCR) - Final, Complete 07/23/20 Clostridium difficile Toxin A&B PCR - Final, Complete 07/23/20 Plesiomonas shigelloides (PCR) - Final, Complete 07/23/20 Salmonella (PCR)(DEQUAN) - Final, Complete 07/23/20 Vibrio Species (PCR) - Final, Complete 07/23/20 Vibrio Cholerae (PCR) - Final, Complete 07/23/20 Yersinia enterocolitica (PCR) - Final, Complete 07/23/20 Enteroaggregative E. coli (PCR) - Final, Complete 07/23/20 Enteropathogenic E. coli (PCR) - Final, Complete 07/23/20 Enterotoxigenic E. coli (PCR) - Final, Complete 07/23/20 E. coli Shiga-like Toxin (PCR) - Final, Complete 07/23/20 Escherichia coli 0157 (PCR) - Final, Complete 07/23/20 Enteroinvasive E. coli/Shigella PCR - Final, Complete 07/23/20 Cryptosporidium (PCR) - Final, Complete 07/23/20 Cyclospora cayetanensis (PCR) - Final, Complete 07/23/20 Entamoeba histolytica (PCR) - Final, Complete 07/23/20 Giardia lamblia (PCR) - Final, Complete 07/23/20 Adenovirus Type F 40/41 (PCR) - Final, Complete 07/23/20 Astrovirus (PCR) - Final, Complete 07/23/20 Norovirus GI/GII (PCR) - Final, Complete 07/23/20 Rotavirus A (PCR) - Final, Complete 07/23/20 Sapovirus I/II/IV/V (PCR) - Final, Complete 07/22/20 Blood Culture - Preliminary, Resulted No Growth after 72 hours. All specime... 07/22/20 Blood Culture - Preliminary, Resulted No Growth after 72 hours. All specime... Discharge Medications Scheduled Ferrous Sulfate (Ferrous Sulfate) 325 Mg Tablet.dr, 1 TAB PO BID Prednisone (Prednisone) 20 Mg Tablet, 20 MG PO BID Prednisone (Prednisone) 10 Mg Tablet, 1 TAB PO TID Prednisone (Prednisone) 10 Mg Tablet, 1 TAB PO BID Prednisone (Prednisone) 10 Mg Tablet, 1 TAB PO DAILY Scheduled PRN Acetaminophen (Acetaminophen) 325 Mg Tablet, 650 MG PO Q4H PRN for PAIN OR FEVER Allergies Coded Allergies: No Known Allergies (Unverified , 07/22/20) RONALDO SOARES DO Jul 27, 2020 13:54
== END 2020-07-27 12:53 | disposition home or self-care (01) | DRG 872 ==
LOC: M ED 15:27 → M ED INP 21:22 → ENRESERV 23:31 → M MSPAV 23:54
PROVIDERS: ADMIT Internal Medicine; ATTEND Internal Medicine
DX: A41.9 Sepsis, unspecified organism (principal); K51.911 Ulcerative colitis, unspecified with rectal bleeding; D50.0 Iron deficiency anemia secondary to blood loss (chronic)

== ENCOUNTER → 2020-08-02 | Outpatient (CLI) | payer OTHER ==
[~2020-08-02] MED LIST: ACET1TAB55 PO; FERR325T3 PO; LIAL1.2T PO; NIFE15CA PO; PRED10TA2 PO; PRED20TA PO
[2020-08-02 19:35] LABS: ALBUMIN 2.9 GM/DL (3.2-5.2); ALT/SGPT 77 U/L (12-78); BILIRUBIN,DIRECT < 0.1 MG/DL (0.0-0.2); BILIRUBIN,TOTAL 0.2 MG/DL (0.2-1.0); IRON (FE) 36 UG/DL (65-175); PERCENT SATURATION 10.3 % (19.7-50.0); TOTAL IRON BINDING CAPACITY 351 UG/DL (250-450); TOTAL PROTEIN 6.8 GM/DL (6.4-8.2)
[2020-08-02 19:54] LABS: HEPATITIS B SURFACE ANTIGEN NEGATIVE (NEGATIVE)
[2020-08-02 20:23] LABS: HEPATITIS B CORE ANTIBODY IGM NEGATIVE (NEGATIVE); HEPATITIS C VIRUS ABY INDEX 0.1 INDEX (<0.8)
[2020-08-02 20:24] LABS: HEPATITIS A ANTIBODY IGM NEGATIVE (NEGATIVE)
[2020-08-05 16:08] LABS: ANCA-ATYPICAL <1:20 titer (Neg:<1:20); ANTI-MITOCHONDRIAL ANTIBODY <20.0 Units (0.0-20.0); ANTINUCLEAR ANTIBODIES DIRECT Negative (Negative); CERULOPLASMIN 22.3 mg/dL (16.0-31.0); CYTOPLASMIC NEUTROP AB ANCA-C <1:20 titer (Neg:<1:20); LIVER-KIDNEY MICROSOMAL ABY <20.1 Units (0.0-20.0); PERINUCLEAR AB ANCA-P <1:20 titer (Neg:<1:20)
== END ==
LOC: M LAB 16:18
PROVIDERS: ATTEND Internal Medicine Gastroenterology
DX: R94.5 Abnormal results of liver function studies (principal); K51.018 Ulcerative (chronic) pancolitis with other complication

== ENCOUNTER 2020-08-16 15:17 | Outpatient (CLI) | payer OTHER ==
[~2020-08-16] VITALS: Ht 170.2 cm; Wt 64.6 kg
[2020-08-16] MEDS ORDERED: VEDOLIZUMAB 300 MG in NS 250 ML IV ONE (15:30)
[2020-08-16 15:41] VITALS: BP 135/78
[2020-08-16 15:48] VITALS: BP 135/78
[2020-08-16 16:30] VITALS: BP 139/82
== END 2020-08-16 17:00 | disposition home or self-care (01) ==
LOC: M INFU 15:17
PROVIDERS: ATTEND Internal Medicine Gastroenterology
DX: K51.90 Ulcerative colitis, unspecified, without complications (principal)
CPT/HCPCS: 96365; J3380

== ENCOUNTER 2020-08-30 15:23 | Outpatient (CLI) | payer OTHER ==
[~2020-08-30] VITALS: Ht 170.2 cm; Wt 64.6 kg
[2020-08-30 15:28] VITALS: BP 143/91
[2020-08-30] MEDS ORDERED: diphenhydrAMINE 25MG CAP PO ONE (15:30)
[2020-08-30] MEDS ORDERED: VEDOLIZUMAB 300 MG in NS 250 ML IV ONE (15:30)
[2020-08-30] MEDS ORDERED: ACETAMINOPHEN TAB 650MG DOSE (2X325MG) PO ONE (15:30)
[2020-08-30 16:43] VITALS: BP 128/87
== END 2020-08-30 16:44 | disposition home or self-care (01) ==
LOC: M INFU 15:23
PROVIDERS: ATTEND Internal Medicine Gastroenterology
DX: K51.90 Ulcerative colitis, unspecified, without complications (principal)
CPT/HCPCS: 96365; J3380

== ENCOUNTER → 2020-09-08 | Outpatient (CLI) | payer OTHER ==
--- NOTE | 2020-09-08 10:55 | REP ---
INDICATION: ABN LEVEL OF OTHER SERUM ENZYMES. History of ulcerative colitis. Question portal hypertension. COMPARISON: Comparison CT study July 22, 2020.. TECHNIQUE: Complete abdominal sonography and visceral Doppler assessment. FINDINGS: Scanning through the right upper quadrant of the abdomen demonstrates a normal sized and walled gallbladder without evidence of stone or polyp. Common bile duct is normal measuring 0.3 cm in greatest diameter. No focal liver lesion is seen. Liver is not felt to be enlarged. No pancreatic abnormality is observed. Normal caliber aorta is seen, 1.7 cm in AP dimension. There is no evidence of ascites. There is a 0.6 cm cyst in the right kidney. Renal cortical echogenicity pattern is normal in contours are smooth bilaterally. No hydronephrosis or mass is seen. Right renal dimensions are 10.1 x 4.1 x 4.1 cm. The left kidney measures 10.2 x 3.7 x 5.4 cm. Scanning in the left upper quadrant demonstrates a normal size homogeneous spleen measuring 10.1 cm in greatest diameter. No significant morphologic abnormality. Doppler sonography: Main portal vein is somewhat dilated measuring 21 mm in diameter. Increased venous flow is observed in the main portal vein and splenic vein. Venous velocity in the main portal vein is 75.7 centimeters/second and that in the splenic vein near the hilus is 36.8 centimeters/second. Venous of a velocity in the proximal superior mesenteric vein is 38.9 centimeters/second. Normal direction of flow is observed. Intrahepatic portal velocities are normal 21-34 centimeters/second. IMPRESSION: Somewhat dilated portal vein with increased flow. No Doppler evidence of portal hypertension. No significant morphologic abnormality. <Electronically signed by Yung Cummings > 09/08/20 [id number]
== END ==
LOC: M RAD 08:37
PROVIDERS: ATTEND Internal Medicine Gastroenterology
DX: R74.8 Abnormal levels of other serum enzymes (principal)

== ENCOUNTER 2020-09-27 15:31 | Outpatient (CLI) | payer OTHER ==
[~2020-09-27] VITALS: Ht 170.2 cm; Wt 64.6 kg
[~2020-09-27 15:31] MED LIST changes: +VEDOLIZUMAB 300 MG in NS 250 ML IV ONE
[2020-09-27 15:46] VITALS: BP 133/79
[2020-09-27 16:47] VITALS: BP 135/79
== END 2020-09-27 16:50 | disposition home or self-care (01) ==
LOC: M INFU 15:31
PROVIDERS: ATTEND Internal Medicine Gastroenterology
DX: K51.90 Ulcerative colitis, unspecified, without complications (principal)
CPT/HCPCS: 96365; J3380

== ENCOUNTER 2020-11-22 15:19 | Outpatient (CLI) | payer OTHER ==
[~2020-11-22] VITALS: Ht 170.2 cm; Wt 64.6 kg
[~2020-11-22 15:19] MED LIST changes: -VEDOLIZUMAB 300 MG in NS 250 ML IV ONE
[2020-11-22] MEDS ORDERED: VEDOLIZUMAB 300 MG in NS 250 ML IV ONE (15:30)
[2020-11-22 15:38] VITALS: BP 125/78
[2020-11-22 16:28] VITALS: BP 127/80
== END 2020-11-22 16:30 | disposition home or self-care (01) ==
LOC: M INFU 15:19
PROVIDERS: ATTEND Internal Medicine Gastroenterology
DX: K51.90 Ulcerative colitis, unspecified, without complications (principal)
CPT/HCPCS: 96365; J3380

== ENCOUNTER 2021-01-17 15:36 | Outpatient (CLI) | payer OTHER ==
[~2021-01-17] VITALS: Ht 170.2 cm; Wt 64.6 kg
[~2021-01-17 15:36] MED LIST changes: +VEDOLIZUMAB 300 MG in NS 250 ML IV ONE
[2021-01-17 15:40] VITALS: BP 130/71
[2021-01-17 17:10] VITALS: BP 132/76
== END 2021-01-17 17:10 | disposition home or self-care (01) ==
LOC: M INFU 15:36
PROVIDERS: ATTEND Internal Medicine Gastroenterology
DX: K51.90 Ulcerative colitis, unspecified, without complications (principal)
CPT/HCPCS: 96365; J3380

== ENCOUNTER 2021-03-14 15:16 | Outpatient (CLI) | payer OTHER ==
[~2021-03-14] VITALS: Ht 170.2 cm; Wt 64.6 kg
[~2021-03-14 15:16] MED LIST changes: -VEDOLIZUMAB 300 MG in NS 250 ML IV ONE
[2021-03-14 15:25] VITALS: BP 138/79
[2021-03-14] MEDS ORDERED: VEDOLIZUMAB 300 MG in NS 250 ML IV ONE (15:30)
[2021-03-14 16:25] VITALS: BP 135/77
== END 2021-03-14 16:27 | disposition home or self-care (01) ==
LOC: M INFU 15:16
PROVIDERS: ATTEND Internal Medicine Gastroenterology
DX: K51.90 Ulcerative colitis, unspecified, without complications (principal)
CPT/HCPCS: 96365; J3380

== ENCOUNTER 2021-05-09 15:21 | Outpatient (CLI) | payer OTHER ==
[~2021-05-09] VITALS: Ht 170.2 cm; Wt 64.6 kg
[2021-05-09 15:28] VITALS: BP 120/81
[2021-05-09] MEDS ORDERED: VEDOLIZUMAB 300 MG in NS 250 ML IV ONE (15:30)
[2021-05-09 16:17] VITALS: BP 114/61
== END 2021-05-09 16:26 | disposition home or self-care (01) ==
LOC: M INFU 15:21
PROVIDERS: ATTEND Internal Medicine Gastroenterology
DX: K51.90 Ulcerative colitis, unspecified, without complications (principal); Z88.8 Allergy status to other drugs, medicaments and biological substances
CPT/HCPCS: 96365; J3380

== ENCOUNTER → 2021-05-23 | Outpatient (CLI) | payer OTHER ==
[2021-05-23 14:54] LABS: AMYLASE 62 U/L (25-115); LIPASE 112 U/L (73-393)
== END ==
LOC: M LAB 12:59
PROVIDERS: ATTEND Internal Medicine Gastroenterology
DX: K51.00 Ulcerative (chronic) pancolitis without complications (principal)